=== PATIENT | male | born 1970 | race Two or more races ===

== ENCOUNTER 2019-09-19 21:34 | Inpatient (IN) | payer MEDICAID ==
[~2019-09-19] VITALS: Ht 175.3 cm; Wt 90.7 kg
--- NOTE | 2019-09-19 21:38 | NUR ---
CRISTHIAN FROM HOME C/O VOMITTING BLOOD +ETOH, pt to bed 12, placed on monitor, vss, nad noted, pending md bashir
[2019-09-19 21:59] LABS: BASOPHILS % (AUTO) 0.2 % (0.0-2.0); HEMATOCRIT 27 % (39-51); HEMOGLOBIN 9.6 g/dL (13.5-17.5); LYMPHOCYTES # (AUTO) 2.5 /CMM (0.8-4.8); LYMPHOCYTES % (AUTO) 20.6 % (20.0-44.0); MEAN CORPUSCULAR HGB CONC 35 g/dl (31.0-36.0); MEAN CORPUSCULAR VOLUME 98 fL (80-96); MONOCYTES # (AUTO) 0.9 /CMM (0.1-1.30); MONOCYTES % (AUTO) 7.6 % (2.0-12.0); NEUTROPHILS # (AUTO) 8.8 /CMM (1.8-8.9); NEUTROPHILS % (AUTO) 71.6 % (43.0-81.0); PLATELET COUNT (AUTO) 217 /CMM (150-450); RED BLOOD CELL COUNT(AUTO) 2.81 MIL/uL (4.5-6.0); WHITE BLOOD COUNT (AUTO) 12.2 K/uL (4.3-11.0)
[2019-09-19] MEDS ORDERED: IV NS 0.9% 1,000 ML BAG IV ONE (22:00)
[2019-09-19] MEDS ORDERED: ONDANSETRON HCL/PF 4 MG/2 ML VIAL IVP ONE (22:00)
[2019-09-19 22:08] LABS: CALCIUM, SERUM 7.4 mg/dL (8.5-10.1); CREATININE 1.5 mg/dL (0.6-1.3); POTASSIUM 3.1 mmol/L (3.5-5.1)
[2019-09-19 22:13] LABS: ALBUMIN 2.9 g/dL (3.4-5.0); BILIRUBIN,DIRECT 0.1 mg/dL (0.0-0.2); BILIRUBIN,TOTAL 0.5 mg/dL (0.2-1.0); TOTAL PROTEIN, SERUM 5.8 g/dL (6.4-8.2)
[2019-09-19] MEDS ORDERED: ONDANSETRON HCL/PF 4 MG/2 ML VIAL ONE ×2 (22:13→22:40)
--- NOTE | 2019-09-19 22:30 | NUR ---
PT NOTED TO BE VOMITTING BLOOD. DR. TOLLIVER AWARE, WITH NEW ORDERS
[2019-09-19] MEDS ORDERED: PANTOPRAZOLE 40 MG VIAL ONE ×2 (22:40→22:45)
[2019-09-19] MEDS ORDERED: PANTOPRAZOLE 80 MG in IV NS 0.9% 100 ML IV ONE (23:00)
[2019-09-19] MEDS ORDERED: PANTOPRAZOLE 80 MG in IV NS 0.9% 500 ML IV PRN (23:00)
[2019-09-19] MEDS ORDERED: ONDANSETRON HCL/PF 4 MG/2 ML VIAL IV ONE (23:00)
[2019-09-20 00:30] VITALS: BP 107/77
--- NOTE | 2019-09-20 00:32 | NUR ---
REPORT GIVEN TO CANDACE BUI FOR NATALIE PT WILL BE TRANSPORTED TO 1ST FLOOR
--- NOTE | 2019-09-20 00:56 | NUR ---
PT TRANSPORTED TO 1ST FLOOR
[2019-09-20] MEDS ORDERED: ACETAMINOPHEN 325 MG TABLET PO PRN (03:00)
[2019-09-20] MEDS ORDERED: LORAZEPAM INJ 2 MG/ML VIAL IV PRN (03:00)
[2019-09-20] MEDS ORDERED: Z GUARD REMEDY 2 OZ OINT TP PRN (03:00)
[2019-09-20] MEDS: PANTOPRAZOLE 40 MG VIAL IV SCH ×2 (03:00→15:23)
[2019-09-20] MEDS ORDERED: ONDANSETRON HCL/PF 4 MG/2 ML VIAL IVP PRN (03:00)
[2019-09-20] MEDS ORDERED: Thiamine 100 MG in IV D5W 50 ML IV ONE (03:00)
[2019-09-20 03:37] LABS: BASOPHILS % (AUTO) 0.2 % (0.0-2.0); HEMATOCRIT 24 % (39-51); HEMOGLOBIN 8.4 g/dL (13.5-17.5); LYMPHOCYTES # (AUTO) 1.9 /CMM (0.8-4.8); LYMPHOCYTES % (AUTO) 18.8 % (20.0-44.0); MEAN CORPUSCULAR HGB CONC 35 g/dl (31.0-36.0); MEAN CORPUSCULAR VOLUME 97 fL (80-96); MONOCYTES # (AUTO) 0.7 /CMM (0.1-1.30); MONOCYTES % (AUTO) 7.2 % (2.0-12.0); NEUTROPHILS # (AUTO) 7.5 /CMM (1.8-8.9); NEUTROPHILS % (AUTO) 73.8 % (43.0-81.0); PLATELET COUNT (AUTO) 198 /CMM (150-450); RED BLOOD CELL COUNT(AUTO) 2.49 MIL/uL (4.5-6.0); WHITE BLOOD COUNT (AUTO) 10.1 K/uL (4.3-11.0)
[2019-09-20] MEDS: IV NS 0.9% 1,000 ML IV PRN ×2 (03:52→13:04)
[2019-09-20 04:00] VITALS: BP 122/69
[2019-09-20] MEDS ORDERED: Thiamine 100 MG/ML VIAL ONE (04:42)
--- NOTE | 2019-09-20 07:30 | NUR ---
conservation officer Notes Recieved patient from third shift lieutenant. Alert and oriented x4. Sinus Tach. Ambulates with assist. NPO for EGD procedure. Regular diet to be resumed after. 18g R AC with NS running at 125mL per hour. EGD consent signed. Called OR, nothing on the schedule yet, but they said will f/u later. Will continue to monitor.
[2019-09-20 08:00] VITALS: BP 130/72
[2019-09-20] MEDS: FOLIC ACID 1 MG TABLET PO SCH (09:00)
[2019-09-20] MEDS: MULTIVITAMINS,THERAGRAN 1 UDTAB TABLET PO SCH (09:00)
[2019-09-20] MEDS: THIAMINE HCL 100 MG TABLET PO SCH (09:00)
[2019-09-20 09:42] LABS: BASOPHILS % (AUTO) 0.5 % (0.0-2.0); HEMATOCRIT 22 % (39-51); HEMOGLOBIN 7.9 g/dL (13.5-17.5); LYMPHOCYTES % (AUTO) 22.6 % (20.0-44.0); MEAN CORPUSCULAR HGB CONC 35 g/dl (31.0-36.0); MEAN CORPUSCULAR VOLUME 98 fL (80-96); MONOCYTES # (AUTO) 0.7 /CMM (0.1-1.30); MONOCYTES % (AUTO) 8.1 % (2.0-12.0); NEUTROPHILS # (AUTO) 6.2 /CMM (1.8-8.9); NEUTROPHILS % (AUTO) 68.8 % (43.0-81.0); PLATELET COUNT (AUTO) 179 /CMM (150-450); RED BLOOD CELL COUNT(AUTO) 2.27 MIL/uL (4.5-6.0); WHITE BLOOD COUNT (AUTO) 8.9 K/uL (4.3-11.0)
--- NOTE | 2019-09-20 11:30 | NUR ---
vice president of brand management Notes Patient Endorsed to [facility] RN to resume care. Informed patient NPO for EGD later. [id number] with consent forms.
--- NOTE | 2019-09-20 11:35 | NUR ---
RN NOTE Received endorsement from João. Patient is for EGD. On NPO status. Waiting for EGD schedule. Patient in bed asleep appears calm and relaxed. No signs of distress. Will cont to monitor.
[2019-09-20 12:00] VITALS: BP 124/76
[2019-09-20] MEDS: SUCRALFATE 1 G TABLET PO SCH ×3 (12:00→21:27)
[2019-09-20] MEDS ORDERED: MIDAZOLAM HCL 2 MG/2ML VIAL ONE (12:03)
--- NOTE | 2019-09-20 12:35 | NUR ---
RN NOTE Patient was taken to OR by 2 OR nurses via bed in stable condition.
--- NOTE | 2019-09-20 13:12 | NUR ---
RN NOTE Patient is back in the unit refused procedure. Per patient he can do it in [facility]. He wants to be picked up by brother and be discharged. Inf I will follow up with MD. Per Dr. Washington, pt can eat. Will cancel NPO status.
--- NOTE | 2019-09-20 14:00 | NUR ---
RN NOTE Per MD cannot discharge yet due to blood level is low need to monitor the patient. Explained to the patient. Pt understood.
--- NOTE | 2019-09-20 15:00 | NUR ---
RN NOTE Notified MD about potassium level 3.1 awaiting response.
[2019-09-20 16:00] VITALS: BP 119/80
[2019-09-20 16:15] LABS: ABG BASE EXCESS -0.9 mmol/L; ABG OXYGEN SATURATION 91.1 % (92.0-98.5); ABG PCO2 35.7 mmHg (35.0-45.0); ABG PH 7.431 (7.350-7.450); ABG PO2 67.3 mmHg (75.0-100.0); AaDO2 39.7 mmHg; COHb 0.8 % (0.5-1.5); MetHb 0.9 % (0.0-1.5); O2Hb 89.6 % (94.0-97.0); SITE, ABG Right Radial; VENT MODE, BG RA
[2019-09-20 16:32] LABS: BASOPHILS % (AUTO) 0.5 % (0.0-2.0); EOSINOPHILS % (AUTO) 0.1 % (0.0-6.0); HEMATOCRIT 22 % (39-51); HEMOGLOBIN 7.4 g/dL (13.5-17.5); LYMPHOCYTES # (AUTO) 2.1 /CMM (0.8-4.8); LYMPHOCYTES % (AUTO) 22.8 % (20.0-44.0); MEAN CORPUSCULAR HGB CONC 34 g/dl (31.0-36.0); MEAN CORPUSCULAR VOLUME 100 fL (80-96); MONOCYTES # (AUTO) 0.7 /CMM (0.1-1.30); MONOCYTES % (AUTO) 7.3 % (2.0-12.0); NEUTROPHILS # (AUTO) 6.4 /CMM (1.8-8.9); NEUTROPHILS % (AUTO) 69.3 % (43.0-81.0); PLATELET COUNT (AUTO) 181 /CMM (150-450); RED BLOOD CELL COUNT(AUTO) 2.18 MIL/uL (4.5-6.0); WHITE BLOOD COUNT (AUTO) 9.2 K/uL (4.3-11.0)
[2019-09-20 18:20] LABS: HEMOGLOBIN 7.4 g/dL (13.5-17.5)
--- NOTE | 2019-09-20 18:38 | NUR ---
RN CLOSING NOTE Patient in bed awake. On RA tolerating well. AO x4. Tele reading SR 80s. Patient on regular diet since 1300 tolerated well. No hemoptysis during this shift. RAC running NS @ 125ml/hr. All due meds given. Kept clean and dry. All needs met. Safety measures reinforced. Call light within reach. Bed locked and on lowest position. No co pain or discomfort. Will endorse to assistant shift supervisor nurse for ivone
--- NOTE | 2019-09-20 19:34 | NUR ---
CUSTOMER SERVICE SUPERVISOR OPENING NOTES PATIENT RECEIVED RESTING IN BED A/O X 4. STABLE ON RA WITH BREATHING EVEN AND UNLABORED, NO SOB NOTED. NO SIGNS OF ACUTE DISTRESS. NO COMPLAINTS OF PAIN OR DISCOMFORT. TELE MONITOR READING SR. IV LOCATED ON R AC #18 RUNNING NS @ 125 ML/HR. SAFETY PREACUTIONS IN PLACE WITH BED IN LOWEST POSITION, CALL LIGHT WITHIN REACH, BREAKS ON, SIDE RAILS UP. WILL CONTINUE TO MONITOR THROUGHOUT THE SHIFT,
[2019-09-20 20:00] VITALS: BP 133/73
[2019-09-20 21:48] LABS: BASOPHILS # (AUTO) 0.1 /CMM (0.0-0.2); BASOPHILS % (AUTO) 0.5 % (0.0-2.0); EOSINOPHILS % (AUTO) 0.5 % (0.0-6.0); HEMATOCRIT 22 % (39-51); HEMOGLOBIN 7.5 g/dL (13.5-17.5); LYMPHOCYTES # (AUTO) 2.6 /CMM (0.8-4.8); LYMPHOCYTES % (AUTO) 24.7 % (20.0-44.0); MEAN CORPUSCULAR HGB CONC 35 g/dl (31.0-36.0); MEAN CORPUSCULAR VOLUME 99 fL (80-96); MONOCYTES # (AUTO) 0.7 /CMM (0.1-1.30); MONOCYTES % (AUTO) 6.8 % (2.0-12.0); NEUTROPHILS # (AUTO) 7.2 /CMM (1.8-8.9); NEUTROPHILS % (AUTO) 67.5 % (43.0-81.0); PLATELET COUNT (AUTO) 185 /CMM (150-450); RED BLOOD CELL COUNT(AUTO) 2.21 MIL/uL (4.5-6.0); WHITE BLOOD COUNT (AUTO) 10.6 K/uL (4.3-11.0)
[2019-09-21] VITALS: BP_SYST 118; BP_SYST 131; BP_DIAS 62; BP_DIAS 68
[2019-09-21] MEDS: IV NS 0.9% 1,000 ML IV PRN ×2 (00:53→08:36)
[2019-09-21] MEDS: PANTOPRAZOLE 40 MG VIAL IV SCH ×2 (02:42→15:40)
[2019-09-21 04:00] VITALS: BP_SYST 118; BP_SYST 131; BP_DIAS 62; BP_DIAS 64
--- NOTE | 2019-09-21 06:45 | NUR ---
STRETCHER HELPER CLOSING NOTES PATIEN RESTING IN BED A/O X 4. STABLE ON RA WITH BREATHING EVEN AND UNLABORED, NO SOB NOTED. NO SIGNS OF ACUTE DISTRESS. NO COMPLAINTS OF PAIN OR DISCOMFORT. TELE MONITOR READING SR. IV LOCATED ON R AC #18 RUNNING NS @ 125 ML/HR. SAFETY PREACUTIONS IN PLACE WITH BED IN LOWEST POSITION, CALL LIGHT WITHIN REACH, BREAKS ON, SIDE RAILS UP. ALL NEEDS ATTENDED TO THROUGHOUT THE NIGHT, PATIENT WAS KEPT CLEAN AND DRY. WILL ENDORSE TO ONCOMING SHIFT ABOUT NATALIE.
--- NOTE | 2019-09-21 07:30 | NUR ---
BUSINESS SERVICES VICE PRESIDENT AM NOTES PATIENT RECEIVED RESTING IN BED A/O X 4. ON RA WITH BREATHING EVEN AND UNLABORED, NO SOB NOTED. NO SIGNS OF ACUTE DISTRESS. SINUS RHYTHM TO SINUS TACH HR 80-104 ON MONITOR. NO COMPLAINTS OF PAIN OR DISCOMFORT. IV LOCATED ON R AC #18 RUNNING NS @ 125 ML/HR. SITE CLEAR. SAFETY PRECAUTIONS IN PLACE WITH BED IN LOWEST POSITION, CALL LIGHT WITHIN REACH, BREAKS ON, SIDE RAILS UP. DISCUSSED POC, VERBALIZED UNDERSTANDING. WILL CONTINUE TO MONITOR THROUGHOUT THE SHIFT,
[2019-09-21 08:00] VITALS: BP_SYST 124; BP_SYST 128; BP_DIAS 72
[2019-09-21] MEDS: SUCRALFATE 1 G TABLET PO SCH ×3 (08:11→16:59)
[2019-09-21] MEDS: THIAMINE HCL 100 MG TABLET PO SCH (08:11)
[2019-09-21] MEDS: FOLIC ACID 1 MG TABLET PO SCH (08:11)
[2019-09-21] MEDS: MULTIVITAMINS,THERAGRAN 1 UDTAB TABLET PO SCH (08:11)
[2019-09-21 08:41] LABS: BASOPHILS % (AUTO) 0.5 % (0.0-2.0); EOSINOPHILS % (AUTO) 0.6 % (0.0-6.0); HEMATOCRIT 24 % (39-51); HEMOGLOBIN 8.2 g/dL (13.5-17.5); LYMPHOCYTES # (AUTO) 1.9 /CMM (0.8-4.8); LYMPHOCYTES % (AUTO) 20.7 % (20.0-44.0); MEAN CORPUSCULAR HGB CONC 35 g/dl (31.0-36.0); MEAN CORPUSCULAR VOLUME 100 fL (80-96); MONOCYTES # (AUTO) 0.5 /CMM (0.1-1.30); MONOCYTES % (AUTO) 5.6 % (2.0-12.0); NEUTROPHILS # (AUTO) 6.5 /CMM (1.8-8.9); NEUTROPHILS % (AUTO) 72.6 % (43.0-81.0); PLATELET COUNT (AUTO) 193 /CMM (150-450); RED BLOOD CELL COUNT(AUTO) 2.35 MIL/uL (4.5-6.0)
[2019-09-21 09:07] LABS: ALBUMIN 2.5 g/dL (3.4-5.0); BILIRUBIN,TOTAL 0.7 mg/dL (0.2-1.0); CALCIUM, SERUM 7.3 mg/dL (8.5-10.1); CREATININE 1.2 mg/dL (0.6-1.3); MAGNESIUM 1.8 mg/dL (1.8-2.4); PHOSPHORUS 2.9 mg/dL (2.5-4.9); POTASSIUM 3.3 mmol/L (3.5-5.1); TOTAL PROTEIN, SERUM 5.2 g/dL (6.4-8.2)
[2019-09-21 09:10] LABS: THYROID STIMULATING HORMONE 3.278 uIU/mL (0.358-3.74)
--- NOTE | 2019-09-21 09:30 | NUR ---
RN NOTES DUE MEDS GIVEN
[2019-09-21 12:00] VITALS: BP_SYST 126; BP_SYST 130; BP_DIAS 68; BP_DIAS 70
[2019-09-21] MEDS ORDERED: PANT40TA2 PO (12:48)
[2019-09-21] MEDS ORDERED: SUCR1TAB31 PO (12:48)
[2019-09-21 16:00] VITALS: BP 126/76
--- NOTE | 2019-09-21 17:30 | NUR ---
HOME PERFORMANCE CONSULTANT DC NOTES PATIENT DISCHARGED TO HOME TODAY PER MD IN STABLE CONDITION. PROVIDED DC INSTRUCTIONS, HEALTH TEACHINGS AND MED RECON LIST. PATIENT TO FOLLOW UP WITH PCP AND DR HILL FOR OUTPT EGD IN 1-2 WEEKS AND WILL MAKE OWN APPOINTMENT. IV ACCESS TO RT AC REMOVED, PRESSURE APPLIED, NO BLEEDING, DRESSING IN PLACE. ALL BELONGINGS CHECKED AND RETURNED. ALL PAPERWORKS SIGNED. ACCOMPANIED TO LOBBY BY MERLYN SALMERON AND WILL GO HOME VIA PRIVATE CAR BY BROTHER TOYA.
== END 2019-09-21 17:30 | disposition home or self-care (01) | DRG 253 ==
LOC: ER 21:34 → TELE1 09-20 00:42
PROVIDERS: ADMIT Nurse Practitioner Acute Care; ATTEND Nurse Practitioner Acute Care
DX: K92.2 Gastrointestinal hemorrhage, unspecified (principal); N17.0 Acute kidney failure with tubular necrosis; D62 Acute posthemorrhagic anemia; E87.1 Hypo-osmolality and hyponatremia; Y90.9 Presence of alcohol in blood, level not specified; D72.829 Elevated white blood cell count, unspecified; E87.6 Hypokalemia; R74.0 Nonspecific elevation of levels of transaminase and lactic acid dehydrogenase [LDH]; F10.10 Alcohol abuse, uncomplicated
CPT/HCPCS: 36415; 36600; 80048-TC; 80053-TC; 80061-TC; 80076-TC; 82803-TC; 83540-TC; 83690-TC; 83735-TC; 84100-TC; 84443-TC; 84484-TC; 85025-TC; 85027-TC; 85730-TC; 86850-TC; 87081-TC; C9113; G0378; J2250; J2405; J3411; J7030; J7040; J7050; J7060